=== PATIENT | male | born 1960 | race Caucasian/White ===

== ENCOUNTER 2019-06-17 15:05 | Emergency (ER) | payer OTHER, MEDICAID ==
[~2019-06-17] VITALS: Ht 167.6 cm; Wt 72.6 kg
--- NOTE | 2019-06-17 15:05 | NUR ---
Note susan in EDM - 06/17/19 at 1917 by KARYN Patient to ER bed 5 to wn for evaluation. Side rails up.
--- NOTE | 2019-06-17 15:10 | NUR ---
ER Dr. ARMSTRONG at bedside examining patient.
[2019-06-17 15:17] VITALS: BP_SYST 106
[2019-06-17 15:32] LABS: BASOPHILS # (AUTO) 0.1 K/uL (0.0-0.2); BASOPHILS % (AUTO) 0.9 % (0.0-2.0); EOSINOPHILS # (AUTO) 0.1 K/uL (0.0-0.4); EOSINOPHILS % (AUTO) 1.1 % (0.0-4.0); HEMATOCRIT 35.6 % (36-54); LYMPHOCYTES # (AUTO) 0.9 K/uL (1.0-5.5); LYMPHOCYTES % (AUTO) 11.3 % (20.5-51.5); MEAN CORPUSCULAR HEMOGLOBIN 33 pg (27-31); MEAN CORPUSCULAR HGB CONC 34 % (32-36); MEAN CORPUSCULAR VOLUME 99 fL (79.0-98.0); MONOCYTES # (AUTO) 0.8 K/uL (0.0-1.0); MONOCYTES % (AUTO) 9.9 % (1.7-9.3); NEUTROPHILS # (AUTO) 5.8 K/uL (1.8-7.7); NEUTROPHILS % (AUTO) 76.8 % (40.0-70.0); PLATELET COUNT (AUTO) 178 K/uL (130-430); RED CELL DISTRIBUTION WIDTH 14.1 % (9.0-15.0); WHITE BLOOD COUNT (AUTO) 7.6 K/uL (4.8-10.8)
[2019-06-17 15:44] LABS: ANION GAP 7 (5-15); CALCIUM 8.2 mg/dL (8.4-11.0); CHLORIDE 102 mmol/L (98-107); GLUCOSE 118 mg/dL (70-99); POTASSIUM 3.8 mmol/L (3.5-5.1); SODIUM SERUM 135 mmol/L (136-145); UREA NITROGEN, BLOOD 15 mg/dL (8-21)
[2019-06-17 15:48] LABS: GFR AFRICAN AMERICAN 150 mL/min (>90)
[2019-06-17 15:51] LABS: ALANINE AMINOTRANSFERASE 19 U/L (12-78); ALBUMIN 2.2 g/dL (3.4-4.8); ASPARTATE AMINOTRANSFERASE 52 U/L (10-37); TOTAL BILIRUBIN 0.5 mg/dL (0.0-1.0)
--- NOTE | 2019-06-17 15:52 | NUR ---
Patient to ER bed 05 to gown for evaluation. Side rails up.
[2019-06-17 15:55] LABS: ACETAMINOPHEN < 1 ug/mL (1-30); ALCOHOL, BLOOD < 3 mg/dL (<10)
--- NOTE | 2019-06-17 16:22 | NUR ---
PT BIB EMS BECAUSE PER TOBACCO CLASSER, PT MORE AGITATED THAN USUAL. PER EMS PT HAD "TANTRUM." EMS STATES PT LAYED ON FLOOR AND DIDNT WANT TO GET UP. PER EMS PT REFUSING TO EAT AND DRINK. PT HAS HISTORY OF CEREBRAL PALSY SO PT IS NONVERBAL. PT ALERT AND AWAKE SMILING. PT HAS NO SIGNS OF RESP DISTRESS. WILL CONTINUE TO MONITOR.
[2019-06-17 16:52] LABS: BARBITURATE, URINE POSITIVE (NEG <=200); BENZODIAZEPINE, URINE NEGATIVE (NEG <=150); CANNABINOID, URINE NEGATIVE (NEG <=50); COCAINE, URINE NEGATIVE (NEG <=150); METHAMPHETAMINES SCREEN,URINE NEGATIVE (NEG <=500); OPIATE, URINE NEGATIVE (NEG <=100); PHENCYCLIDINE SCREEN,URINE NEGATIVE (NEG <=25); UR TRICYCLIC ANTIDEPRESSANTS NEGATIVE (NEG <=300); URINE AMPHETAMINE NEGATIVE (NEG <=500); URINE METHADONE NEGATIVE (NEG <=200); URINE OXYCODONE SCREEN NEGATIVE (NEG <=100); URINE PROPOXYPHENE SCREEN NEGATIVE (NEG <=300)
--- NOTE | 2019-06-17 17:15 | NUR ---
SPOKE TO LEGAL REPRESENATIVE ERI [place] [phone]. SAID PT FROM [facility]. GAVE NUMBER TO CALL SASHA AT [phone]. TALKED TO SASHA THAT PT MEDICALY CLEAR. SAID SHE WOULD CALL REFINERY OPERATOR HELPER AND CALL US BACK.
--- NOTE | 2019-06-17 17:29 | NUR ---
CALLED CAREGIVER FOR PT PICKUP. SPOKE TO TRISHA AT FACILITY,REOPRTED DOOR MACHINE OPERATOR TO PICKUP PT. NO ETA GIVEN.
[2019-06-17 18:30] VITALS: BP_SYST 124
--- NOTE | 2019-06-17 18:35 | NUR ---
Patient given written and verbal discharge instructions and verbalizes understanding. ER MD discussed with patient the results and treatment provided. Patient in stable condition. ID arm band removed. no Rx of given. Patient educated on pain management and to follow up with PMD. Pain Scale 0. Opportunity for questions provided and answered. Medication side effect fact sheet provided.
== END 2019-06-17 18:30 | disposition home or self-care (01) ==
LOC: SED 15:05
DX: R45.1 Restlessness and agitation (principal)
CPT/HCPCS: 36415; 80053; 80307; 85025; 93005; 99284; G0480; G0481; G0482